=== PATIENT | male | born 1935 | race Asian ===

== ENCOUNTER 2024-12-10 12:29 | Inpatient (IN) | payer BC, MEDICAID ==
[~2024-12-10] VITALS: Ht 165.1 cm; Wt 51.7 kg
[2024-12-10] MEDS ORDERED: AMLO5TAB4 PO (13:15)
[2024-12-10] MEDS ORDERED: ACET-2030 PO (13:15)
[2024-12-10] MEDS ORDERED: FINA5TAB11 PO (13:15)
[2024-12-10] MEDS ORDERED: METO25TA6 PO (13:15)
[2024-12-10 13:24] LABS: PLATELET COUNT (AUTO) 239 K/uL (150-450); RED BLOOD CELL COUNT(AUTO) 6.76 MIL/uL (4.5-6.0); RED CELL DISTRIBUTION WIDTH 15.8 % (11.5-15.0); WHITE BLOOD COUNT (AUTO) 6.0 K/uL (4.3-11.0)
[2024-12-10 13:35] LABS: CALCIUM, SERUM 9.3 mg/dL (8.5-10.1); CREATININE 1.1 mg/dL (0.6-1.3); SODIUM SERUM 139.0 mmol/L (136-145); UREA NITROGEN, BLOOD 13.0 mg/dL (7-18)
[2024-12-10 13:42] LABS: ASPARTATE AMINOTRANSFERASE 14.0 U/L (15-37); TOTAL PROTEIN, SERUM 7.6 g/dL (6.4-8.2)
[2024-12-10] MEDS ORDERED: MAGNESIUM HYDROXIDE 30 ML UDC PO PRN (18:30)
[2024-12-10] MEDS ORDERED: ACETAMINOPHEN 325 MG TABLET PO PRN (18:30)
[2024-12-10] MEDS ORDERED: Z GUARD REMEDY 4 OZ OINT TP PRN (18:30)
[2024-12-10] MEDS ORDERED: MAG HYDROX/AL HYDROX/SIMETH 30 ML UDC PO PRN (18:30)
[2024-12-10] MEDS ORDERED: ONDANSETRON HCL/PF 4 MG/2 ML VIAL IVP PRN (18:30)
[2024-12-10 19:00] VITALS: BP 130/86; TEMP 98.2; O2SAT 96
[2024-12-10 20:00] VITALS: BP 130/86; TEMP 97.5; O2SAT 95
[2024-12-10] MEDS: METOPROLOL TARTRATE 25 MG TABLET PO SCH (21:03)
[2024-12-11 04:00] VITALS: BP 135/84; TEMP 97.9; O2SAT 96
[2024-12-11 07:46] LABS: PLATELET COUNT (AUTO) 244 K/uL (150-450); RED BLOOD CELL COUNT(AUTO) 6.57 MIL/uL (4.5-6.0); RED CELL DISTRIBUTION WIDTH 15.6 % (11.5-15.0); WHITE BLOOD COUNT (AUTO) 6.6 K/uL (4.3-11.0)
[2024-12-11 08:00] VITALS: BP 132/101; TEMP 98.2; O2SAT 96
[2024-12-11 08:16] LABS: CALCIUM, SERUM 8.9 mg/dL (8.5-10.1); CREATININE 1.0 mg/dL (0.6-1.3); PHOSPHORUS 3.6 mg/dL (2.5-4.9); SODIUM SERUM 143.0 mmol/L (136-145); UREA NITROGEN, BLOOD 17.0 mg/dL (7-18)
[2024-12-11] MEDS: AMLODIPINE BESYLATE 5 MG TABLET PO SCH (08:53)
[2024-12-11] MEDS: FINASTERIDE (5 MG) 5 MG TABLET PO SCH (08:54)
[2024-12-11 16:00] VITALS: BP 126/65; TEMP 98; O2SAT 96
[2024-12-12 04:00] VITALS: BP 131/76; TEMP 98.2; O2SAT 94
[2024-12-12 08:46] VITALS: BP 136/73; TEMP 97.5; O2SAT 99
[2024-12-12 09:44] VITALS: BP 136/73
== END 2024-12-12 13:49 | DRG 951 ==
LOC: ER 12:45 → MEDSG1 18:24 → UNDOADMIN 19:28 → UNDODISIN 12-12 13:49
PROVIDERS: ATTEND Internal Medicine
DX: Z04.89 Encounter for examination and observation for other specified reasons (principal); I10 Essential (primary) hypertension; Z79.899 Other long term (current) drug therapy; M19.90 Unspecified osteoarthritis, unspecified site
CPT/HCPCS: 36415; 80048-TC; 80076-TC; 83735-TC; 84100-TC; 85025-TC; 87081-TC; 97110-TC; 97116-TC; 97530-TC; G0378